=== PATIENT | male | born 1960 | race Caucasian/White ===

== ENCOUNTER 2020-01-27 12:41 | Observation (INO) ==
[2020-01-27 13:19] LABS: Hematocrit 37.1 % (42.0-52.0); Hemoglobin 12.6 gm/dL (13.5-18.0); Mean Cell Volume 93.7 fl (78-100); Mean Corpuscular Hemoglobin 31.8 pg (27-31); Mean Platelet Volume 10.3 fl (8-11.3); Neutrophil # 9.8 K/mm3 (1.3-6.0); Neutrophil % 90.8 % (42-75.0); Platelet Count 264 K/mm3 (150-450); Red Blood Count 3.96 M/mm3 (4.7-6.0); Red Cell Distribution Width 12.8 % (11.5-14.0); White Blood Count 10.8 K/mm3 (4.0-10.5)
[2020-01-27 13:30] LABS: Prothrombin Time (Patient) 10.7 Seconds (9.1-10.7)
[2020-01-27 13:31] LABS: INR 1.08 INR (0.92-1.08)
[2020-01-27 13:32] LABS: Partial Thrombolplastin Time 26.8 Seconds (24-32)
[2020-01-27 13:38] LABS: ALT 18 U/L (19-67); AST 14 U/L (0-48); Alkaline Phosphatase * 106 U/L (50-170); Anion Gap 14.6 mmol/L (6.8-13.8); BUN/Creatinine Ratio 16.1 (9.0-21.6); Bilirubin, Total 0.3 mg/dL (0.0-1.1); Blood Urea Nitrogen 20 mg/dL (6-23); Ca. Corrected For Albumin 9.3 mg/dL (8.4-10.2); Calcium * 8.8 mg/dL (7.9-10.9); Carbon Dioxide 28.4 mmol/L (24-32.6); Chloride 103 mmol/L (97-106); Glucose * 101 mg/dL (70-110); Sodium 142 mmol/L (132-142); Total Protein 6.4 gm/dL (6.2-8.2)
[2020-01-27 13:39] LABS: Troponin I 0.056 ng/mL (0.00-0.10)
[2020-01-27] MEDS ORDERED: ASPIRIN 325 MG TABLET.DR PO ONE (14:20)
[2020-01-27] MEDS ORDERED: LORazepam 2 MG/ML DISP.SYRIN IV ONE (14:38)
--- NOTE | 2020-01-27 15:03 | HP ---
Chief Complaint - Chief Complaint Date of Service: 01/27/20 Time of Service: 14:57 Chief Complaint: TIA History of Present Illness: 59-year-old male with past medical history of Left Upper Lobe Effusion status post lobectomy in 2013, coronary artery disease, GERD, Villavicencio's esophagus, presents to [facility] emergency room with symptoms concerning for stroke. Time when symptoms began are unknown, patient has been inconsistent with the time of symptoms presentation. Symptoms described as dysarthria and involuntary movement of his upper extremity. NIH SS score was 1. All other symptoms have resolved with exception of intermittent dysarthria. On arrival patient is mildly hypertensive, remaining vital signs are largely unremarkable. All work-up in the ER was largely unremarkable with exception of mild leukocytosis. CT of head was unremarkable. [facility] was contacted for further management. Pending MRI of the head along with Doppler of the carotids. Overnight observation and continue to monitor. Patient being treated for Community Acquired Pneumonia with Bactrim day#4/7 and Prednisone 3 tabs x 6 days then 1 tab x 5 days. Currently on Day #5/11 treatment. Evaluated patient on the floor and NIHSS 1, current symptoms is mild dysarthria. Remaining Neurological Exam was unremarkable. PE concerning for Diffuse inspiratory and expiratory wheezing. Discussed management with patient and at bedside. Voiced understanding. Patient admitted to [facility] for TIA versus stroke. Medical History (Last Updated 01/27/20 @ 16:05 by Sherie Sen RN) Lung infection Onset Date: ~2013 Short-term memory loss Anxiety Onset Date: Unknown COPD (chronic obstructive pulmonary disease) Onset Date: Unknown Degenerative disc disease Onset Date: Unknown Depression Onset Date: Unknown Heart disease Onset Date: Unknown History of Villavicencio's esophagus Onset Date: Unknown History of dysphagia Onset Date: Unknown History of gastroesophageal reflux (GERD) Onset Date: Unknown History of hyperlipidemia Onset Date: Unknown History of hypothyroidism Onset Date: Unknown Hypertension Onset Date: Unknown Nutcracker esophagus Onset Date: ~2010 Surgical History: Surgical History (Last Reviewed 01/27/20 @ 16:05 by Sherie Sen RN) History of esophageal dilatation Onset Date: Unknown x5 over last 8 yrs History of esophagogastroduodenoscopy (EGD) Onset Date: 08/30/14 07/20/13. 08/30/14 [place]-negative for Villavicencio's, chronic reflux esophagitis, negative H.pylor. History of hip replacement, total Onset Date: Unknown History of lobectomy of lung Onset Date: 01/16/14 Left lower lobe Hx of colonoscopy Onset Date: 08/30/14 01/15/11. 08/30/1401-[id number] biopsies. Hx of neck surgery Onset Date: ~1999 [facility]-anterior cervical Family History: Family History (Last Reviewed 01/27/20 @ 14:59 by Bong Stokes MD) Father No problems noted. Mother Cancer colon ca Diabetes Grandmother Cancer paternal-breast ca Rheumatoid arthritis paternal Aunt Cancer colon ca Uncle Cancer lymphoma Diabetes Aneurysm Aunt Brain cancer Social History: (Last Updated 01/27/20 @ 16:32 by Sherie Sen RN) Social History: Marital status: lives independently: Yes household members: spouse, family current occupational status: disabled current occupational exposures/hazards: No Service: No Tobacco: Smoking Status: Current every day smoker tobacco type: cigarettes Smoking cigarettes per day: 3 Alcohol: alcohol intake: former Substance Use: substance use type: does not use Dietary Habits: well-balanced diet: rarely or never caffeine: No Review Of Systems (GEN) - Review of Systems Generalized/Overall Review: Present: Weakness - mild right upper extremity EENTM: Absent: No Symptoms Reported Respiratory: Absent: Shortness of Breath, Orthopnea Cardiac: Absent: Chest Pain, Palpitations Abdominal: Absent: Nausea, Vomiting, Abdominal Pain Genitourinary: Absent: Urgency, Frequency Musculoskeletal: Absent: Joint Pain, Back Pain, Joint Swelling Neurological: Present: Other - right tremors of upper extremity Skin: Present: No Symptoms Reported Endocrine: Present: No Symptoms Reported Immunizations: IMMUNIZATION HX Immunizations Up to Date Yes History of Influenza Vaccine No Hx Pneumococcal Vaccination No Allergies/Adverse Reactions: Allergies Allergy/AdvReac Type Severity Reaction Status Date / Time cephalexin [From Keflex] AdvReac Severe Heartburn Verified 01/27/20 16:06 Home Medications: HOME MEDICATIONS Albuterol Sulfate [Albuterol Sulfate Hfa] 8.5 gm INHALATION PRN PRN 05/20/19 [Last Taken Unknown] Aspirin 325 mg PO HS 05/20/19 [Last Taken Unknown] Clonazepam 1 mg PO QID PRN 05/20/19 [Last Taken Unknown] Levothyroxine Sodium [Synthroid] 100 mcg PO DAILY 05/20/19 [Last Taken Unknown] Metoprolol Tartrate 100 mg PO BID 05/20/19 [Last Taken Unknown] Mirtazapine [Remeron] 30 mg PO HS 05/20/19 [Last Taken Unknown] Omeprazole 40 mg PO BID 05/20/19 [Last Taken Unknown] Pravastatin Sodium 40 mg PO HS 05/20/19 [Last Taken Unknown] traMADol HCL [Ultram] 100 mg PO QID PRN 05/20/19 [Last Taken Unknown] Durable Medical Equipment See Dose Instructions .ROUTE .MEDSUPPLY #1 ea 06/13/19 [Last Taken Unknown] paroxetine HCl 10 mg tablet 20 mg PO HS 06/13/19 [Last Taken Unknown] Albuterol Sulfate [Albuterol Sulfate 0.63 MG/3ML] 0.63 mg INHALATION Q2H PRN 01/27/20 [Last Taken Unknown] Sulfamethoxazole/Trimethoprim [Bactrim Ds] 1 tab PO BID 01/27/20 [Last Taken Unknown] predniSONE [Prednisone] 30 mg PO BID 01/27/20 [Last Taken Unknown] Exam - Exam Vital Signs: Vital Signs - Last Taken Temp 36.4 C 01/27/20 14:29 Pulse 72 01/27/20 14:29 Resp 18 01/27/20 14:29 BP 143/71 H 01/27/20 14:29 Pulse Ox 97 01/27/20 14:29 Constitutional: Present: Alert, Oriented x3, Cooperative, Thin and frail ENT Exam: Present: hearing grossly normal Eye Exam: bilateral eye: normal inspection, PERRL, EOMI Neck: Present: non-tender, full range of motion, supple Back Exam: Present: normal inspection Respiratory: Present: chest non-tender, no respiratory distress, no accessory muscle use, wheezing, expiration (prolonged) Cardiovascular/Chest: Present: normal peripheral pulses, regular rate, rhythm, no chest tenderness, no edema, no gallop, no JVD, no murmur Peripheral Pulses: dorsalis-pedis (R): 2+, dorsalis-pedis (L): 2+ Abdomen: Present: Normal bowel sounds, soft, nontender, nondistended, no rebound tenderness /Rectal: Present: Exam deferred Extremity: Present: normal range of motion Skin Exam: Present: normal color, warm/dry, no cyanosis Lymphatic: Present: no adenopathy Neurologic: Present: alert, normal mood/affect, oriented x 3, other - dysarthria. Absent: motor weakness, sensory deficit Appearance: Present: appropriate appearance, appropriate insight Eye contact: Present: cooperative, good eye contact Thoughts: Present: normal thought pattern Diagnostic Studies: Abnormal Lab Results 01/27/20 01/27/20 Range/Units 13:10 13:10 WBC 10.8 H (4.0-10.5) K/mm3 RBC 3.96 L (4.7-6.0) M/mm3 Hgb 12.6 L (13.5-18.0) gm/dL Hct 37.1 L (42.0-52.0) % MCH 31.8 H (27-31) pg Immature Gran % (Auto) 0.60 H (0.001-0.429) % Immature Gran # (Auto) 0.06 H (0.000-0.0310) K/mm3 Neutrophils % 90.8 H (42-75.0) % Lymphocytes % 6.0 L (20-51) % Neutrophils # 9.8 H (1.3-6.0) K/mm3 Lymphocytes # 0.65 L (1.5-3.5) k/mm3 Anion Gap 14.6 H (6.8-13.8) mmol/L ALT 18 L (19-67) U/L Albumin 3.0 L (3.4-5.0) gm/dl Laboratory Results WBC 10.8 K/mm3 (4.0-10.5) H 01/27/20 13:10 RBC 3.96 M/mm3 (4.7-6.0) L 01/27/20 13:10 Hgb 12.6 gm/dL (13.5-18.0) L 01/27/20 13:10 Hct 37.1 % (42.0-52.0) L 01/27/20 13:10 MCV 93.7 fl (78-100) 01/27/20 13:10 MCH 31.8 pg (27-31) H 01/27/20 13:10 MCHC 34.0 g/dl (32-36) 01/27/20 13:10 RDW 12.8 % (11.5-14.0) 01/27/20 13:10 Plt Count 264 K/mm3 (150-450) 01/27/20 13:10 MPV 10.3 fl (8-11.3) 01/27/20 13:10 Immature Gran % (Auto) 0.60 % (0.001-0.429) H 01/27/20 13:10 Immature Gran # (Auto) 0.06 K/mm3 (0.000-0.0310) H 01/27/20 13:10 Neutrophils % 90.8 % (42-75.0) H 01/27/20 13:10 Lymphocytes % 6.0 % (20-51) L 01/27/20 13:10 Monocytes % 2.5 % (0.0-9) 01/27/20 13:10 Eosinophils % 0.0 % (0.0-3.0) 01/27/20 13:10 Basophils % 0.1 % (0.0-1.0) 01/27/20 13:10 Nucleated RBC % 0.0 k/mm3 (0-1) 01/27/20 13:10 Neutrophils # 9.8 K/mm3 (1.3-6.0) H 01/27/20 13:10 Lymphocytes # 0.65 k/mm3 (1.5-3.5) L 01/27/20 13:10 Monocytes # 0.3 k/mm3 (0.0-1.0) 01/27/20 13:10 Eosinophils # 0.0 k/mm3 (0.0-0.7) 01/27/20 13:10 Absolute Basophils 0.0 k/mm3 (0.0-0.1) 01/27/20 13:10 PT 10.7 Seconds (9.1-10.7) 01/27/20 13:10 INR (Anticoag Therapy) 1.08 INR (0.92-1.08) 01/27/20 13:10 PTT (Levy) 26.8 Seconds (24-32) 01/27/20 13:10 Sodium 142 mmol/L (132-142) 01/27/20 13:10 Plasma Sodium 142 mmol/L (130-142) 01/27/20 13:10 Potassium 4.0 mmol/L (3.4-4.6) 01/27/20 13:10 Chloride 103 mmol/L (97-106) 01/27/20 13:10 Carbon Dioxide 28.4 mmol/L (24-32.6) 01/27/20 13:10 Anion Gap 14.6 mmol/L (6.8-13.8) H 01/27/20 13:10 BUN 20 mg/dL (6-23) 01/27/20 13:10 Creatinine 1.24 mg/dL (0.4-1.4) 01/27/20 13:10 Est GFR (Non-Af Amer) 63 mL/min (60-130) 01/27/20 13:10 BUN/Creatinine Ratio 16.1 (9.0-21.6) 01/27/20 13:10 Random Glucose 101 mg/dL (70-110) 01/27/20 13:10 Calcium 8.8 mg/dL (7.9-10.9) 01/27/20 13:10 Calcium Adj for Albumin 9.3 mg/dL (8.4-10.2) 01/27/20 13:10 Total Bilirubin 0.3 mg/dL (0.0-1.1) 01/27/20 13:10 AST 14 U/L (0-48) 01/27/20 13:10 ALT 18 U/L (19-67) L 01/27/20 13:10 Alkaline Phosphatase 106 U/L (50-170) 01/27/20 13:10 Ammonia Less than 17.0 mcmol/L (11-35) 01/27/20 13:10 Troponin I 0.056 ng/mL (0.00-0.10) 01/27/20 13:10 Total Protein 6.4 gm/dL (6.2-8.2) 01/27/20 13:10 Albumin 3.0 gm/dl (3.4-5.0) L 01/27/20 13:10 Ethyl Alcohol Less than 3.0 mg/dL (0.0-10.0) 01/27/20 13:10 Assessment/Plan - Procedures Results: CVA -MRI and US of carotids pending - Lovenox 50 mg SC Q12H - High Dose Statin - Allow permissive hypertension and resume Metoprolol in AM - Neuro checks Q4H - Continous Telemtry - PT/OT ordered - Bedside swallow test CAP - Switched to Levaquin - Continue Prednisone taper - Daily CBC and CMP FEN: HH DOM DIET CODE STATUS: DNR/DNI DVT PPX: LOVENOX DISPOSITION: Will revaluate in AM Anticipate discharge within 48 hours Will call [facility] Neurology in AM with MRI and Carotid doppler results. - Assessment/Plan (1) CVA (cerebral vascular accident) Problem: Acute Qualifiers: CVA mechanism: other Qualified Code(s): I63.89 - Other cerebral infarction (2) Community acquired pneumonia Problem: Acute Qualifiers: Laterality: left Lung location: lower lobe of lung Qualified Code(s): J18.9 - Pneumonia, unspecified organism
--- NOTE | 2020-01-27 15:10 | ERNOTE ---
Medical Problem HPI - Narrative Date of Service: 01/27/20 - General Chief Complaint: General Assessment Time Seen by Provider: 01/27/20 12:49 Source: patient Exam Limitations: no limitations - Immun/Allergies/Home Medications Immunizations: IMMUNIZATION HX Immunizations Up to Date Yes History of Influenza Vaccine No Hx Pneumococcal Vaccination No Allergies/Adverse Reactions: Allergies cephalexin [From Keflex] Adverse Reaction (Severe, Verified 06/13/19 15:52) Heartburn Home Medications: HOME MEDICATIONS Albuterol Sulfate [Albuterol Sulfate Hfa] 8.5 gm INHALATION PRN PRN 05/20/19 [Last Taken Unknown] Aspirin 325 mg PO HS 05/20/19 [Last Taken Unknown] Clonazepam 1 mg PO QID PRN 05/20/19 [Last Taken Unknown] Levothyroxine Sodium [Synthroid] 100 mcg PO DAILY 05/20/19 [Last Taken Unknown] Metoprolol Tartrate 100 mg PO BID 05/20/19 [Last Taken Unknown] Mirtazapine [Remeron] 15 mg PO HS 05/20/19 [Last Taken Unknown] Omeprazole 40 mg PO BID 05/20/19 [Last Taken Unknown] Pravastatin Sodium 40 mg PO DAILY 05/20/19 [Last Taken Unknown] traMADol HCL [Ultram] 100 mg PO QID PRN 05/20/19 [Last Taken Unknown] Durable Medical Equipment See Dose Instructions .ROUTE .MEDSUPPLY #1 ea 06/13/19 [Last Taken Unknown] paroxetine HCl 10 mg tablet 10 mg PO DAILY 06/13/19 [Last Taken Unknown] Sulfamethoxazole/Trimethoprim [Bactrim Ds] 1 tab PO BID 01/27/20 [Last Taken Unknown] predniSONE [Prednisone] 3 tab PO BID 01/27/20 [Last Taken Unknown] - History of Present History Narrative: patient presents to the ED for speech problems. He relates that this morning he had difficulty speaking and felt like his right arm was having movement of its own. No jerking or shaking. No N/T/W in the extremities. Never had anything like this before. Initially he stated that this started 2 hours ago but he tells me that it started at 6 am. I asked him a third time and he thought possibly 10am. I can get no consistent answer so an exact time cannot be established other than it started earlier today. No pain. Recent steroid and ABx for pneumonia. Timing: other - fluctuating intensity Severity: moderate Modifying Factors - (Improves): Present: other - nothing Modifying Factors - (Worsens): Present: other - nothing Review of Systems - Review of Systems Constitutional: Absent: fever EYE: Present: no symptoms reported ENT: Present: no symptoms reported Respiratory: Present: See HPI. Absent: shortness of breath Cardiology: Absent: chest pain Gastrointestinal/Abdominal: Absent: abdominal pain Genitourinary: Absent: dysuria Neurological: Present: See HPI All Other Systems: All systems neg except as marked Medical History (Last Reviewed 01/27/20 @ 14:59 by Bong Stokes MD) Short-term memory loss Anxiety Onset Date: Unknown COPD (chronic obstructive pulmonary disease) Onset Date: Unknown Degenerative disc disease Onset Date: Unknown Depression Onset Date: Unknown Heart disease Onset Date: Unknown History of Villavicencio's esophagus Onset Date: Unknown History of dysphagia Onset Date: Unknown History of gastroesophageal reflux (GERD) Onset Date: Unknown History of hyperlipidemia Onset Date: Unknown History of hypothyroidism Onset Date: Unknown Hypertension Onset Date: Unknown History of lung cancer Onset Date: ~2013 Nutcracker esophagus Onset Date: ~2010 Surgical History: Surgical History (Last Reviewed 01/27/20 @ 14:59 by Bong Stokes MD) History of esophageal dilatation Onset Date: Unknown x5 over last 8 yrs History of esophagogastroduodenoscopy (EGD) Onset Date: 08/30/14 07/20/13. 08/30/14 [place]-negative for Villavicencio's, chronic reflux esophagitis, negative H.pylor. History of hip replacement, total Onset Date: Unknown History of lobectomy of lung Onset Date: 01/16/14 Left lower lobe Hx of colonoscopy Onset Date: 08/30/14 01/15/11. 08/30/1421-[id number] biopsies. Hx of neck surgery Onset Date: ~1999 [facility]-anterior cervical Family History: Family History (Last Reviewed 01/27/20 @ 14:59 by Bong Stokes MD) Father No problems noted. Mother Cancer colon ca Diabetes Grandmother Cancer paternal-breast ca Rheumatoid arthritis paternal Aunt Cancer colon ca Uncle Cancer lymphoma Diabetes Aneurysm Aunt Brain cancer Social History: (Last Reviewed 01/27/20 @ 14:59 by Bong Stokes MD) Social History: Marital status: household members: spouse current occupational status: disabled current occupational exposures/hazards: No Service: No Tobacco: Smoking Status: Current every day smoker tobacco type: cigarettes, e-cigarettes Smoking cigarettes per day: 10.0 Smoking packs per day: 0.5 Alcohol: alcohol intake: former Substance Use: substance use type: does not use Dietary Habits: well-balanced diet: other caffeine: Yes caffeine comment: Red Bull daily Physical Exam - Physical Exam General Appearance: Present: alert, no apparent distress Head Exam: Present: normal inspection, no evidence of injury Eye Exam: Normal inspection: bilateral, PERRL: bilateral Ears, Nose, Throat: Present: normal ENT inspection Neck: Present: normal inspection Respiratory: Present: no respiratory distress, normal breath sounds, no acces renetta muscle use, lungs clear Cardiovascular/Chest: Present: regular rate, rhythm Gastrointestinal/Abdominal: Present: normal bowel sounds, nontender, nondistended, soft Back Exam: Present: normal range of motion Extremity Exam: Present: normal inspection, normal range of motion Neurological Exam: Present: alert, other - NIH - 1. Patient has intermittent dysarthria, no other CN deficits. No pronator drift and no other focal motor deficits noted. No sensory deficits. Finger to nose wnl, gait stable. Skin Exam: Present: normal color, warm/dry Progress - Results and Orders Patient's Lab Results:: I have reviewed the patient's lab results. - Vital Signs Patient's Vital Signs:: I have reviewed the patient's vital signs. Vital Signs: Vital Signs 01/27/20 12:44 01/27/20 13:35 01/27/20 13:37 Temperature 36.1 C Pulse Rate 68 68 68 Respiratory Rate 12 Blood Pressure 148/86 H 146/70 H 146/70 H O2 Sat by Pulse Oximetry 97 99 99 01/27/20 13:45 01/27/20 14:00 01/27/20 14:29 Temperature 36.4 C Pulse Rate 69 63 72 Respiratory Rate 23 H 18 Blood Pressure 156/65 H 140/96 H 143/71 H O2 Sat by Pulse Oximetry 99 100 97 - EKG EKG #1 EKG: NSR EKG read: Interp. by me EKG Comments: NSR rate 65. LVH. Non-specific ST/T wave changes, no STEMI. - CT/Ultrasound CT/Ultrasound Narrative: I reviewed official radiology report - Progress/Reassessment Chief Complaint: General Assessment Progress Note-Subjective: 01/27/20 14:[address] Grant at [facility]. He recommends MRI and stroke w/u here at [facility]. D/W Dr Koenig who will admit. Patient agreeable. Currently stable. Overall at this time he feels "better" but seems to still have some dysarthria at times. No clear onset time so after discussion with [facility], not eligible for tPA. 01/27/20 15:06 Departure Clinical Impression: Stroke-like symptoms - Departure Disposition: Still a patient Condition: Fair
[2020-01-27] MEDS ORDERED: traMADol HCL 50 MG TABLET PO PRN (15:14)
[2020-01-27] MEDS ORDERED: ALBUTEROL SULFATE 2.5 MG/0.5 ML VIAL.NEB IH PRN (15:14)
[2020-01-27] MEDS ORDERED: ENOXAPARIN SODIUM 60 MG/0.6 ML SYRG SC SCH (16:00)
[2020-01-27] MEDS ORDERED: NON-FORMULARY 1 DOSE DOSE (Albuterol Sulfate 0.63 MG) inhalation PRN (16:28)
[2020-01-27] MEDS ORDERED: ALBUTEROL SULFATE 2.5 MG/0.5 ML VIAL.NEB IH SCH (16:30)
[2020-01-27] MEDS ORDERED: LEVOFLOXACIN IN DEXTROSE 5 % 750 MG/150 ML BAG IV SCH (17:00)
[2020-01-27] MEDS: predniSONE 10 MG TABLET PO SCH (17:24)
[2020-01-27] MEDS: ALBUTEROL SULFATE 2.5 MG/0.5 ML VIAL.NEB IH SCH ×2 (18:26→22:13)
[2020-01-27] MEDS: BUDESONIDE 0.25 MG/2 ML VIAL.NEB IH SCH (18:26)
[2020-01-27] MEDS ORDERED: FORMOTEROL FUMARATE 20 MCG/2 ML VIAL IH SCH (19:00)
[2020-01-27] MEDS ORDERED: HYDROcodone/ACETAMINOPHEN 1 EACH TABLET PO ONE (20:01)
[2020-01-27] MEDS: clonazePAM 1 MG TABLET PO PRN (20:15)
[2020-01-27] MEDS: PANTOPRAZOLE SODIUM 40 MG TABLET.EC PO SCH (20:16)
[2020-01-27] MEDS: THEOPHYLLINE ANHYDROUS 300 MG TAB.SR.12H PO SCH (20:16)
[2020-01-27] MEDS: METOPROLOL TARTRATE 100 MG TABLET PO SCH (20:16)
[2020-01-27] MEDS ORDERED: ROSUVASTATIN CALCIUM 20 MG TABLET PO SCH (21:00)
[2020-01-27] MEDS ORDERED: BUDESONIDE 0.25 MG/2 ML VIAL.NEB IH SCH (21:00)
[2020-01-27] MEDS ORDERED: MIRTAZAPINE 15 MG TABLET PO SCH (21:00)
[2020-01-28] MEDS: ALBUTEROL SULFATE 2.5 MG/0.5 ML VIAL.NEB IH SCH ×3 (02:20→11:14)
[2020-01-28 05:07] LABS: Hematocrit 35.9 % (42.0-52.0); Hemoglobin 12.3 gm/dL (13.5-18.0); Mean Cell Volume 92.1 fl (78-100); Mean Corpuscular Hemoglobin 31.5 pg (27-31); Mean Corpuscular Hgb Conc 34.3 g/dl (32-36); Mean Platelet Volume 10.2 fl (8-11.3); Neutrophil # 7.2 K/mm3 (1.3-6.0); Neutrophil % 81.9 % (42-75.0); Platelet Count 236 K/mm3 (150-450); Red Cell Distribution Width 12.6 % (11.5-14.0); White Blood Count 8.8 K/mm3 (4.0-10.5)
[2020-01-28 05:22] LABS: Albumin * 2.3 gm/dl (3.4-5.0); Anion Gap 9.7 mmol/L (6.8-13.8); BUN/Creatinine Ratio 18.6 (9.0-21.6); Bilirubin, Total 0.2 mg/dL (0.0-1.1); Ca. Corrected For Albumin 9.1 mg/dL (8.4-10.2); Calcium * 8.1 mg/dL (7.9-10.9); Carbon Dioxide 29.6 mmol/L (24-32.6); Potassium 4.3 mmol/L (3.4-4.6); Total Protein 5.7 gm/dL (6.2-8.2)
[2020-01-28] MEDS: BUDESONIDE 0.25 MG/2 ML VIAL.NEB IH SCH (06:24)
[2020-01-28] MEDS: PANTOPRAZOLE SODIUM 40 MG TABLET.EC PO SCH (06:38)
[2020-01-28] MEDS ORDERED: LEVOTHYROXINE SODIUM 100 MCG TABLET PO SCH (07:00)
[2020-01-28] MEDS: THEOPHYLLINE ANHYDROUS 300 MG TAB.SR.12H PO SCH (08:59)
[2020-01-28] MEDS: METOPROLOL TARTRATE 100 MG TABLET PO SCH (08:59)
[2020-01-28] MEDS ORDERED: FLU VACC QS2019-20(6MOS UP)/PF 60 MCG/0.5 ML SYRINGE IM ONE (09:00)
[2020-01-28] MEDS: predniSONE 10 MG TABLET PO SCH (09:00)
[2020-01-28] MEDS ORDERED: TIOTROPIUM BROMIDE 5 CAP INHALER IH SCH (09:00)
[2020-01-28] MEDS ORDERED: PARoxetine HCL 10 MG TABLET PO SCH (09:00)
[2020-01-28] MEDS: clonazePAM 1 MG TABLET PO PRN (09:09)
--- NOTE | 2020-01-28 11:22 | DS ---
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 Time when symptoms began are unknown, patient has been inconsistent with the time of symptoms presentation. Symptoms described as dysarthria and involuntary movement of his upper extremity. NIH SS score was 1. All other symptoms have resolved with exception of intermittent dysarthria. On arrival patient is mildly hypertensive, remaining vital signs are largely unremarkable. All work-up in the ER was largely unremarkable with exception of mild leukocytosis. CT of head was unremarkable. [facility] was contacted for further management. Recommended MRI of the head along with Doppler of the carotids and overnight observation. Evaluated patient on the floor and NIHSS 1, current symptoms is mild dysarthria. Remaining Neurological Exam was unremarkable. No change overnight. Patient diagnosed with Community Acquired Pneumonia and was on Bactrim day#4/7 and Prednisone 3 tabs x 6 days then 1 tab x 5 days. PE concerning for Diffuse inspiratory and expiratory wheezing. Currently on Day #5/11 treatment. Optimized COPD management and switched to Levaquin for better coverage and continued taper. Discharged on Budenoside and Spiriva. Recommended to d/c overnight oxygen upon discharge. Imaging concerning for mets versus ischemic stroke of embolic etiology. Doppler of carotids concerning for Mild stenosis of right carotids and moderate stenosis of left carotids. Echo to be completed outpatient. Discussed findings with Stroke Team at [facility], requested doppler be re-read with percentage of stenosis and to foward images for them to review. Concern was ischemia BL would be a devastating stroke and inconsistent with current symptoms. PT/OT ordered and evaluated. Evaluation consistent with significant cognitive impairment, most likely not new onset, recommend to have someone to watch over him at home and OT outpatient. Patient declined services to be ordered ou tpatient. Discussed findings and concern with patient and recommended he follow up with PCP for further workup outpatient. Patient voiced understanding and agreeable to plan. Procedures Performed: none Care Plan Goals: Follow up with PCP withinn 1 week of Discharge for further workup Plan of Treatment: Continue Levaquin for 2 more days Continue Prednisone taper Start budenoside and spiriva for COPD D/C overnight oxygen No change in home medications Recommend OT outpatient Health Concerns: Suspect malignancy and patient may be immunocompromised Assessment: Stroke Like Symptoms with Cognitive Impairment /Dementia Community Acquired Pneumonia Results and Findings: Lab Pending Results 01/27/20 13:10: WBC 10.8 H, RBC 3.96 L, Hgb 12.6 L, Hct 37.1 L, MCV 93.7, MCH 31.8 H, MCHC 34.0, RDW 12.8, Plt Count 264, MPV 10.3, Immature Gran % (Auto) 0.60 H, Immature Gran # (Auto) 0.06 H, Neutrophils % 90.8 H, Lymphocytes % 6.0 L, Monocytes % 2.5, Eosinophils % 0.0, Basophils % 0.1, Nucleated RBC % 0.0, Neutrophils # 9.8 H, Lymphocytes # 0.65 L, Monocytes # 0.3, Eosinophils # 0.0, Absolute Basophils 0.0 01/27/20 13:10: Sodium 142, Plasma Sodium 142, Potassium 4.0, Chloride 103, Carbon Dioxide 28.4, Anion Gap 14.6 H, BUN 20, Creatinine 1.24, Est GFR (Non-Af Amer) 63, BUN/Creatinine Ratio 16.1, Random Glucose 101, Calcium 8.8, Calcium Adj for Albumin 9.3, Total Bilirubin 0.3, AST 14, ALT 18 L, Alkaline Phosphatase 106, Troponin I 0.056, Total Protein 6.4, Albumin 3.0 L, Ethyl Alcohol Less than 3.0 01/27/20 13:10: PT 10.7, INR (Anticoag Therapy) 1.08, PTT ([place]) 26.8 01/27/20 13:10: Ammonia Less than 17.0 01/28/20 05:00: WBC 8.8, RBC 3.90 L, Hgb 12.3 L, Hct 35.9 L, MCV 92.1, MCH 31.5 H, MCHC 34.3, RDW 12.6, Plt Count 236, MPV 10.2, Immature Gran % (Auto) 0.50 H, Immature Gran # (Auto) 0.04 H, Neutrophils % 81.9 H, Lymphocytes % 12.5 L, Monocytes % 4.9, Eosinophils % 0.1, Basophils % 0.1, Nucleated RBC % 0.0, Neutrophils # 7.2 H, Lymphocytes # 1.10 L, Monocytes # 0.4, Eosinophils # 0.0, Absolute Basophils 0.0 01/28/20 05:00: Sodium 139, Plasma Sodium 139, Potassium 4.3, Chloride 104, Carbon Dioxide 29.6, Anion Gap 9.7, BUN 21, Creatinine 1.13, Est GFR (Non-Af Amer) 71, BUN/Creatinine Ratio 18.6, Random Glucose 105, Calcium 8.1, Calcium Adj for Albumin 9.1, Total Bilirubin 0.2, AST 13, ALT 15 L, Alkaline Phosphatase 89, Total Protein 5.7 L, Albumin 2.3 L Discharge Location: Home Disposition: Home self-care Condition: Fair Discharge Activity: Activity as tolerated Discharge Diet: Resume usual diet Prescriptions (Any new or edited meds): Albuterol Sulfate [Albuterol Sulfate 2.5 MG/0.5ML] 2.5 mg INHALATION Q4H PRN #1 vial.neb PRN Reason: Shortness Of Breath Transmission Status: Sent to [place], [place] Levofloxacin in Dextrose 5 % [Levaquin] 750 mg PO Q24H #2 bag Transmission Status: Sent to [place], [place] Budesonide [Pulmicort Respules] 0.25 mg INHALATION Q12H #1 vial.neb Transmission Status: Sent to [place], [place] Tiotropium [place] [Spiriva] 1 cap INHALATION DAILY #30 inhaler Transmission Status: Sent to [place], [place] Complete Home Medications List: Complete Home Medication List: Albuterol Sulfate [Albuterol Sulfate Hfa] 8.5 gm INHALATION PRN PRN 05/20/19 Aspirin 325 mg PO HS 05/20/19 Clonazepam 1 mg PO QID PRN 05/20/19 Levothyroxine Sodium [Synthroid] 100 mcg PO DAILY 05/20/19 Metoprolol Tartrate 100 mg PO BID 05/20/19 Mirtazapine [Remeron] 30 mg PO HS 05/20/19 Omeprazole 40 mg PO BID 05/20/19 Pravastatin Sodium 40 mg PO HS 05/20/19 traMADol HCL [Ultram] 100 mg PO QID PRN 05/20/19 paroxetine HCl 10 mg tablet 20 mg PO HS 06/13/19 Albuterol Sulfate [Albuterol Sulfate 0.63 MG/3ML] 0.63 mg INHALATION Q2H PRN 01/27/20 Sulfamethoxazole/Trimethoprim [Bactrim Ds] 1 tab PO BID 01/27/20 predniSONE [Prednisone] 30 mg PO BID 01/27/20 Albuterol Sulfate [Albuterol Sulfate 2.5 MG/0.5ML] 2.5 mg INHALATION Q4H PRN #1 vial.neb 01/28/20 Budesonide [Pulmicort Respules] 0.25 mg INHALATION Q12H #1 vial.neb 01/28/20 Levofloxacin in Dextrose 5 % [Levaquin] 750 mg PO Q24H #2 bag 01/28/20 Tiotropium [place] [Spiriva] 1 cap INHALATION DAILY #30 inhaler 01/28/20
[2020-01-28 12:27] VITALS: BP 126/63
[2020-01-29] MEDS ORDERED: predniSONE 20 MG TABLET PO SCH (09:00)
== END 2020-01-28 12:20 | disposition home or self-care (01) ==
LOC: MS 12:41 → ER 12:41
PROVIDERS: ADMIT Family Medicine; ATTEND Family Medicine
DX: E03.9 Hypothyroidism, unspecified; I11.9 Hypertensive heart disease without heart failure; J18.9 Pneumonia, unspecified organism; Z23 Encounter for immunization; J44.9 Chronic obstructive pulmonary disease, unspecified; G45.9 Transient cerebral ischemic attack, unspecified; K21.9 Gastro-esophageal reflux disease without esophagitis; R47.1 Dysarthria and anarthria; K22.70 Barrett's esophagus without dysplasia; F17.210 Nicotine dependence, cigarettes, uncomplicated
CPT/HCPCS: 36415; 70450; 70553; 71020; 71046; 80053; 82140; 84484; 85025; 85610; 85730; 90686; 93005; 93880; 94640; 94664; 96125; 96365; 96366; 96375; 97161; 99284; 99285; A9576; G0008; G0378